=== PATIENT | female | born 1940 | race Caucasian/White ===

== ENCOUNTER 2016-05-26 19:32 | Inpatient (IN) | payer MEDICARE, BC ==
--- NOTE | ~2016-05-26 | MR122 ---
[facility] A Service of [facility] RADIOLOGY TEXT RESULTS PATIENT: KENAN GOTTI LOCATION: [place] [address] : 40 UNIT #: [id number] AGE: [address]: Morales Mays MD SEX: F ORDER DR: [id number] [facility] [address]. [place], [place] [address] [id number] I MR#: [id number] Acc #: [id number] NAME: KENAN GOTTI : 1940 SEX: F STUDY DATE/TIME: 05/28/2016 12:01 UNIT: [facility] ROOM: [facility] STUDY DESCRIPTION: MR MRA Head Wo Contrast Attending Physician: Morales Mays M.D. Ordering Physician: Donita Acevedo M.D. Primary Care Physician: Ric Holcomb M.D. MRI CENTER REPORT This report is preliminary unless electronic signature is present. EXAM MR angiogram, [place]. HISTORY Confusion and left arm weakness for about a month. Fell 05/26/2016; admitted through the Emergency Room for further evaluation. Possible CVA. COMMENT MR angiography performed of the [place] vasculature without contrast. No comparison at site of intracranial vasculature. There is no intracranial vascular cutoff. There is a small anterior communicating artery present. Neither posterior communicator is definitely seen. No focal central stenosis appearance. No intracranial aneurysm appreciated, allowing for the limitation of MR angiography in general for evaluation of small aneurysms. IMPRESSION Essentially normal MR angiography, [place] vasculature. Dictated by... Kathryn Doyle M.D. THIS IS AN ELECTRONICALLY VERIFIED REPORT Kathryn Doyle M.D. at 05/29/2016 1:47 PM CARMEN/edgard TD: 05/28/2016 19:00 JOB #: [id number] MRI CENTER REPORT [facility] A Service of [facility] RADIOLOGY TEXT RESULTS PATIENT: KENAN GOTTI LOCATION: [place] [id number] : 40 UNIT #: [id number] AGE: [address]: Morales Mays MD SEX: F ORDER DR: EDIE
--- NOTE | ~2016-05-26 | CO ---
Unit #: [id number] #: [id number] Patient: KENAN BYRD [id number] [address] [place], [place] [address] [id number] I MR#: [id number] NAME: KENAN BYRD ROOM: 547 Age: 75 Sex: F Admission Date: 05/26/2016 : 1940 Attending Physician: Morales Mays M.D. Primary Care Physician: Ric Holcomb M.D. Consultation Date: 05/27/2016 CONSULTATION REPORT REASON FOR CONSULTATION New-onset atrial fibrillation and chest pain and non ST elevated SD. HISTORY OF PRESENT ILLNESS This is a 75-year-old white female with reported dementia, who is well known to Dr. Mccabe, who has known coronary artery disease. Last January, she had angioplasty and stent placed to the first diagonal branch of the LAD. Earlier last year, had other stents placed to the proximal RCA and the mid RCA in the acute right ventricular branch. Her ejection fraction is 45% with known mitral regurgitation. She also has history of atrial and ventricular arrhythmias and PSVT. As mentioned, has known maybovcr-hc-nkxabg aortic regurgitation. The patient presented with symptoms of lightheadedness and complaining of substernal chest pain and some left arm weakness. According to information, the patient was brought into the emergency room accompanied by her daughter. She was at home earlier on day of admission and started noticing some pain in her entire left arm. She had reported to her family and to the staff yesterday that about a month ago she was having some problems holding things with her left hand. She started yesterday developing the left anterior chest wall pain along with left arm weakness but also could feel her heart racing. She reports she took three nitroglycerin and did not resolve any pain in her chest or up in the left arm. She was concerned it was heart, so she came to the emergency room for further evaluation. In the emergency room, the patient's EKG was found to show atrial fibrillation with rapid ventricular response with a heart rate in the 140s. There was some ST segment depression. She was given aspirin, Pepcid, and started on a Cardizem drip. Besides the chest pain and heart racing, she started developing some pain and weakness and aching in her left arm. She started complaining of pain in her jaws along with the aching in her left arm and left anterior chest wall pain. There is reports that she has had sudden hearing loss in her left ear that was worked by ENT in the past with negative findings. The patient converted back to normal sinus rhythm. The patient denies any acute dizziness that would be precipitating the presyncopal or syncopal episodes. She did not report any recent increased cough, fever, or chills. The patient's chest x-ray did not show anything acute. Her EKG, as mentioned, did show atrial fibrillation with some ST-T wave abnormalities in inferior leads and inferolateral leads. When she converted back to normal sinus rhythm, her EKG showed some T-wave inversion in all V leads, V1 through V6. Her initial troponin was less than 0.05 and then this morning her troponin came back 1.4. The patient was given a dose of Lovenox in addition to aspirin and started on a beta perez and statin. Cardiology has been consulted to assist with evaluation and management. The patient is well Unit #: [id number] #: [id number] Patient: KENAN BYRD known to Dr. Sánchez in our office and she had just seen Dr. Mccabe in the office on March 25, 2016. PAST MEDICAL HISTORY 1. Coronary artery disease. April 2015, status post PCI and drug-eluting stent to the proximal RCA, mid RCA, and acute right ventricular branch with LV EF of 45% with 3+ mitral regurgitation. LAD in January 2016 status post PCI and stent to first diagonal branch of the LAD, previous stent in the proximal RCA widely patent, mid RCA stent patent, and the right PDA stent patent. 2. History of paroxysmal supraventricular tachycardia. 3. Hypertension. 4. Hyperlipidemia. 5. Lifelong nonsmoker. 6. She has some mild dementia. 7. Reports some weight loss over the past year. PAST SURGICAL HISTORY 1. Status post PCI and drug-eluting stent, April 2015, to the proximal and mid RCA and acute right ventricular branch. 2. Status post PCI and drug-eluting stent, January 2016, to the first diagonal branch of the LAD. 3. Prior back surgery. 4. Left breast biopsy. 5. EGD and colonoscopy, reportedly normal. HOME MEDICATIONS 1. Plavix 75 mg one tablet p.o. daily. 2. Carafate 1 g p.o. four times daily. 3. Pepcid 40 mg p.o. daily. 4. Atorvastatin 80 mg p.o. at bedtime. 5. Metoprolol 75 mg p.o. daily. 6. Losartan 50 mg p.o. at bedtime. 7. Aspirin 81 mg p.o. daily. 8. Nitrostat 0.4 mg sublingual daily. ALLERGIES No known drug allergies. SOCIAL HISTORY The patient lives with her and she has dementia. Lifelong nonsmoker. No alcohol or illicit drug abuse. FAMILY HISTORY Sudden cardiac in the patient's daughter at the age of 52. The patient's mother also had coronary artery disease. REVIEW OF SYSTEMS See details in HPI. PHYSICAL EXAMINATION GENERAL: On exam, Ms. Byrd is a 75-year-old white female in no acute respiratory distress. VITAL SIGNS: Blood pressure 104/52, heart rate 77, respirations 18, temperature 98.7, O2 saturations 97% on room air. NECK: Trachea midline. No thyromegaly, lymphadenopathy. Normal carotid upstrokes. No jugular venous distention. HEART: S1, S2. Regular rate and rhythm. Systolic murmur over aortic Unit #: [id number] #: [id number] Patient: KENAN BYRD region, left sternal border. LUNGS: Diminished, otherwise clear. ABDOMEN: Soft, nontender. EXTREMITIES: Pedal pulses are palpable. No pedal edema. Slightly weaker hand grasp on the left. Moves all extremities well except for the left is a little slower. NEUROLOGIC: The patient is awake and alert, knows she is in the hospital, knows her family. Has some poor memory recall. DIAGNOSTIC STUDIES LABORATORY: Glucose is 93, BUN 23, creatinine 1.2, eGFR is 46.5, sodium 140, potassium 4.1, chloride 104, CO2 of 29, calcium 9, magnesium is 2. Total protein 8.3, albumin 4.4, bilirubin total 0.8, AST 43, ALT 36, alkaline phosphatase 72. WBC 9.5, hemoglobin 12.6, hematocrit 38.3. Today's hemoglobin is down to 10.9, hematocrit 31.9, platelets 227,000. Initial cardiac enzymes: CK-MB is less than 1, troponin is less than 0.05. Repeat cardiac enzymes: Troponin less than 0.03, then 1.4. IMAGING: Chest x-ray shows nothing acute. CARDIOVASCULAR: EKG on admission showed atrial fibrillation with rapid ventricular response. Ventricular rate is 142 beats per minute. Anterolateral depression, ischemia, left ventricular hypertrophy. Repeat EKG shows normal sinus rhythm, T-wave inversion in all V leads, flattening ST segment in V6. IMPRESSION 1. Non ST elevated myocardial infarction. 2. History of coronary artery disease, previous percutaneous coronary intervention and stents to the right coronary artery and the left anterior descending coronary artery. See details in history of present illness. 3. New-onset atrial fibrillation, converted back to normal sinus rhythm. 4. Left ventricular ejection fraction of 45% to 50% with jctnzxdr-sc-resgce mitral regurgitation, moderate tricuspid regurgitation, qdqparse-ot-hpofay aortic regurgitation, trace pulmonic valvular regurgitation with elevated right ventricular systolic pressure 42 mmHg. 5. Hypertension. 6. Weight loss, 25 pounds over the last one year. 7. Hyperlipidemia. 8. History of paroxysmal supraventricular tachycardia and atrial arrhythmias. 9. Nonsmoker. PLAN 1. Cardiology consulted to assist with evaluation and management. Currently, patient's heart rate is controlled, now on a beta perez. She did get some IV Lopressor. Currently, the Cardizem is turned off and her heart rate is remaining stable. The patient's troponin is elevated indicating a non ST elevated myocardial infarction. Dr. Mccabe reviewed patient's records and had a long discussion with the patient and family and plans to have a cardiac cath today to re-evaluate her coronary artery disease. Discussed with them risks and benefits including risk of bleeding, myocardial infarction, stroke, and even . The patient and family verbalized understanding and agrees to proceed. Unit #: [id number] #: [id number] Patient: KENAN BYRD 2. Neurology has been consulted to evaluate patient's left arm weakness and also some of her other symptoms, questionable transient ischemic attack or recent stroke. 3. Obtain fasting lipid profile and TSH and evaluate. 4. On exam, there are no signs or symptoms of acute congestive heart failure. 5. Will obtain TSH and T4 and evaluate. 6. Will also re-assess her valvular heart disease on the heart catheterization. She has a history of jhgncqpk-jj-ftxlmn mitral regurgitation and aortic regurgitation. 7. There have been reports of patient having some weight loss over the past few months. That will need to be evaluated at some time. Looking back on her weights, she weighed 136 May 11, 2015 and she weighs 110, it is like a 25 pound weight loss. 8. Continue patient on nitrate, aspirin, statin, beta perez, and Lovenox. The patient's creatinine is 1.2, holding her losartan at this time. Also, to avoid any hypotension. May need to restart later because of her cardiomyopathy. 9. Further recommendations pending per Dr. Mccabe. Doing a heart cath today. Thank you very much for allowing us to assist in her care. Dictated by... Nicole Ravi A.P.R.N. for Jordan Correa/poonam TD: 05/27/2016 12:12 JOB #: [id number] CC: Ric Holcomb M.D. CONSULTATION REPORT X Nicole Ravi APRN X CONSULTATION REPORT
--- NOTE | ~2016-05-26 | CR72 ---
[facility] A Service of [facility] RADIOLOGY TEXT RESULTS PATIENT: KENAN GOTTI LOCATION: [place] [address]- : 40 UNIT #: [id number] AGE: [address]: Morales Mays MD SEX: F ORDER DR: [id number] [facility] [address] [place], [place] [address] [id number] I MR#: [id number] Acc #: [id number] NAME: KENAN GOTTI : 1940 SEX: F STUDY DATE/TIME: 05/26/2016 23:23 UNIT: [facility] ROOM: [facility] STUDY DESCRIPTION: CR Chest Single View Portable Attending Physician: Elvia Velásquez M.D. Ordering Physician: Elvia Velásquez M.D. Primary Care Physician: Ric Holcomb M.D. MEDICAL IMAGING REPORT This report is preliminary unless electronic signature is present EXAM AP portable chest Date: 05/26/2016 HISTORY 75-year-old female with chest pain and weakness since 05/26/2016. COMPARISON AP portable chest 05/26/2016 19:13. FINDINGS Prominent nipple shadow is less conspicuous on this study than on prior. It is in a slightly different position on this examination than on the previous study. No acute airspace disease. Heart size normal. No pleural effusion or pneumothorax. IMPRESSION No acute chest findings. The previously described density in the right lung base is compatible with a nipple shadow. Dictated by... Stacy Aguilar M.D. THIS IS AN ELECTRONICALLY VERIFIED REPORT Stacy Aguilar M.D. at 05/27/2016 10:03 PM KASSI/ernie TD: 05/27/2016 06:48 JOB #: [id number] MEDICAL IMAGING REPORT COPY
--- NOTE | ~2016-05-26 | EKG ---
PATIENT: KENAN GOTTI UNIT #: [id number] Ventricular Rate: 65 BPM Atrial Rate: 65 BPM P-R Interval: 140 ms QRS Duration: 82 ms Q-T Interval: 412 ms QTC Calculation(Bezet): 428 ms P [place]: 42 degrees Calculated R [place]: 35 degrees Calculated T [place]: 43 degrees Diagnosis Line: Normal sinus rhythm Diagnosis Line: Normal ECG Diagnosis Line: When compared with ECG of 27-MAY-2016 08:50, Diagnosis Line: Nonspecific T wave abnormality, improved in Diagnosis Line: Inferior leads Diagnosis Line: Nonspecific T wave abnormality no longer evident Diagnosis Line: in Lateral leads Diagnosis Line: QT has shortened Diagnosis Line: Confirmed by PATRICIA TRAN MD ([id number]) on 05/29/2016 Diagnosis Line: 9:58:06 PM INTERPRETING MD: MARC SOLO
--- NOTE | ~2016-05-26 | CR72 ---
[facility] A Service of [facility] & [facility] RADIOLOGY TEXT RESULTS PATIENT: KENAN GOTTI LOCATION: [place] [address] : 40 UNIT #: [id number] AGE: [address]: Morales Mays MD SEX: F ORDER DR: [id number] [facility] [address] [place], [place] [address] [id number] I MR#: [id number] Acc #: [id number] NAME: KENAN GOTTI : 1940 SEX: F STUDY DATE/TIME: 05/26/2016 19:13 UNIT: [facility] ROOM: [facility] STUDY DESCRIPTION: CR Chest Single View Portable Attending Physician: Elvia Velásquez M.D. Ordering Physician: Ck Ibarra D.O. Primary Care Physician: Ric Holcomb M.D. MEDICAL IMAGING REPORT This report is preliminary unless electronic signature is present EXAM Portable chest, 05/26/2016 INDICATION Chest pain and weakness today. PROCEDURE Frontal view chest. COMPARISON 02/04/2016 FINDINGS Heart size is stable. No dense consolidation. There is a 16 mm nodular density in the lateral right lung base probably representing the nipple shadow. No pleural fluid. No pneumothorax. IMPRESSION 1. No clearly acute finding. 2. 16 mm apparent nodule in the lateral right lung base favored to represent the nipple shadow but cannot exclude a basilar nodule. A repeat with nipple marker in place, would be helpful. Dictated by... Chay Miller M.D. THIS IS AN ELECTRONICALLY VERIFIED REPORT Chay Miller M.D. at 05/28/2016 7:00 AM EED/myranda TD: 05/27/2016 03:09 [facility] A Service of [facility] RADIOLOGY TEXT RESULTS PATIENT: KENAN GOTTI LOCATION: [place] [address] : 40 UNIT #: [id number] AGE: [address]: Morales Mays MD SEX: F ORDER DR: JOB #: [id number] MEDICAL IMAGING REPORT COPY
--- NOTE | ~2016-05-26 | MR18 ---
[facility] A Service of [facility] & [facility] RADIOLOGY TEXT RESULTS PATIENT: KENAN GOTTI LOCATION: [facility] [id number] : 40 UNIT #: [id number] AGE: [address]: Morales Mays MD SEX: F ORDER DR: [id number] [facility] [address] [place], [place] [address] [id number] I MR#: [id number] Acc #: [id number] NAME: KENAN GOTTI. : 1940 SEX: F STUDY DATE/TIME: 05/28/2016 11:11 UNIT: B ROOM: [facility] STUDY DESCRIPTION: MR Brain Wo Contrast Attending Physician: Morales Mays M.D. Ordering Physician: Donita Acevedo M.D. Primary Care Physician: Ric Holcomb M.D. MRI CENTER REPORT This report is preliminary unless electronic signature is present. EXAM MRI brain without contrast. HISTORY CVA concern. Confusion and left arm weakness for 1 month. Fell 05/26/2016, with increasing left arm pain. Evaluated in the Emergency Room, 05/26/2016. No history of cancer. COMMENT MRI of the brain was performed without contrast, using routine 1.5-T imaging technique. Comparison study 02/02/2016. No evidence for recent ischemic insult on the diffusion series. Mild generalized atrophy. No Chiari I malformation. Mild generalized atrophy. No particular atrophy pattern. Moderate white matter signal abnormality, most confluent in the deep to periventricular white matter again seen with focal malacia, including cortical involvement at the right lateral frontal lobe, all chronic. There is what is probably a densely calcified meningioma overlying the left frontal lobe, about 1 cm in dimension and incidental. It is unchanged. There is no extraaxial fluid collection. The major intracranial flow voids are maintained. Minor mucosal disease in the ethmoid air cells. No sinus air-fluid level. The mastoid air cells are clear. IMPRESSION 1. No acute intracranial abnormality. 2. Redemonstration of probable sequelae of both small vessel disease and a prior thromboembolic insult to the right frontal lobe. These findings are unchanged from comparison to 02/02/2016. There is mild generalized atrophy, but no particular pattern of atrophy. No STS. [facility] A Service of [facility] RADIOLOGY TEXT RESULTS PATIENT: KENAN GOTTI LOCATION: [facility] [id number] : 40 UNIT #: [id number] AGE: [address]: Morales Mays MD SEX: F ORDER DR: extraaxial fluid collection or hydrocephalus. 3. Redemonstration of likely small incidental densely calcified meningioma overlying the left frontal lobe. Dictated by... Kathryn Doyle M.D. THIS IS AN ELECTRONICALLY VERIFIED REPORT Kathryn Doyle M.D. at 05/29/2016 1:46 PM Mynor TD: 05/28/2016 18:08 JOB #: [id number] MRI CENTER REPORT COPY
--- NOTE | ~2016-05-26 | CR126 ---
[facility] A Service of [facility] RADIOLOGY TEXT RESULTS PATIENT: KENAN GOTTI LOCATION: [place] [address] : 40 UNIT #: [id number] AGE: [address]: Morales Mays MD SEX: F ORDER DR: [id number] [facility] [address] [place], [place] [address] [id number] MR#: [id number] Acc #: [id number] NAME: KENAN GOTTI : 1940 SEX: F STUDY DATE/TIME: 05/30/2016 11:52 UNIT: C5 ROOM: [facility] STUDY DESCRIPTION: CR Foot Complete Min 3 View Lt Attending Physician: Morales Mays M.D. Ordering Physician: Morales Mays M.D. Primary Care Physician: Ric Holcomb M.D. MEDICAL IMAGING REPORT This report is preliminary unless electronic signature is present EXAM Left foot, 3 views. DATE OF EXAM 05/30/2016, 1152 hours. CLINICAL HISTORY 75-year-old woman complaining of lateral foot and ankle pain and swelling for 4 days. No known injury. COMPARISON None. FINDINGS AP, lateral and oblique views demonstrate an abnormal appearance to the 4th metatarsal, where there is definite periosteal thickening and likely a subacute or healing proximal fracture. There is some spurring at the proximal 5th metatarsal, which appears chronic. No acute fracture lucency is seen. IMPRESSION The 4th metatarsal is abnormal with diffuse periosteal thickening along the lateral cortex. There is some sclerotic change obliquely oriented through the proximal 4th metatarsal which is likely the site of a healed or healing fracture. There is no definite acute fracture seen. This finding is older than 4 days, and could be chronic. Dictated by... Amarilys Hartman M.D. [facility] A Service [facility] RADIOLOGY TEXT RESULTS PATIENT: KENAN GOTTI LOCATION: [place] [address] : 40 UNIT #: [id number] AGE: [address]: Morales Mays MD SEX: F ORDER DR: THIS IS AN ELECTRONICALLY VERIFIED REPORT Amarilys Hartman M.D. at 05/31/2016 9:18 AM ZEB/whitney TD: 05/30/2016 16:47 JOB #: [id number] MEDICAL IMAGING REPORT COPY
--- NOTE | ~2016-05-26 | CO ---
Unit #: [id number] #: [id number] Patient: KENAN GOTTI 116[address] [place] [address] [place], [place] [address] [id number] MR#: [id number] NAME: KENAN GOTTI ROOM: 547 Age: 75 Sex: F Admission Date: 05/26/2016 : 1940 Attending Physician: Morales Mays M.D. Primary Care Physician: Ric Holcomb M.D. Consultation Date: 05/27/2016 CONSULTATION REPORT REASON FOR CONSULTATION 1. Left arm numbness. 2. Left hand weakness. 3. Decreased hearing on the left side, this happened about 4 weeks ago. PATIENT IDENTIFICATION This is a 75-year-old right-handed white female, who is evaluated in room 547 at [facility]. SOURCE OF INFORMATION The patient and very detailed evaluation done by Dr. Velásquez. PRIMARY CARE PHYSICIAN Ric Holcomb M.D. HISTORY OF PRESENT ILLNESS This is a 75-year-old right-handed white female, who actually was admitted for some chest pain and lightheadedness. While she was being evaluated, she told Dr. Velásquez that she had some left-sided symptoms and the symptoms were that she has numbness on the outer border or the dorsal aspect of the left arm almost in the middle of that and also she had an episode of some weakness where she could not open a jar about 3 to 4 weeks ago and then she had decreased hearing on the left side, though she wears a hearing aid. She is on aspirin and Plavix. She is now here for some chest pain. She is being evaluated. There is no imaging study. She is not very weak and she really could not explain to me if there were any other symptoms or why did she not come to the emergency room. No falls or injuries. No headaches. No seizures. No radicular signs or symptoms. She is blaming these things on medication, but she could not tell me that there was a change in medication at that time. Please refer to the detailed evaluation done by Dr. Velásquez regarding her other symptoms. No bowel or bladder symptoms. No passing out. PAST MEDICAL HISTORY 1. Coronary artery disease. The patient had cardiac cath done in the past. 2. Hypertension. 3. Hyperlipidemia. 4. History of paroxysmal supraventricular tachycardia. 5. History of atrial fibrillation. 6. Prior back surgery. 7. Left breast biopsy. 8. EGD. 9. Colonoscopy. Unit #: [id number] #: [id number] Patient: KENAN GOTTI ALLERGIES None. HOME MEDICATIONS Atorvastatin 80 mg, metoprolol tartrate 75 mg, losartan 50 mg, Plavix 75 mg, aspirin 81 mg, famotidine 40 mg, Carafate questionably not taking it, nitroglycerin 0.4 mg. FAMILY HISTORY Sudden cardiac in the patient's daughter at age 52. Mother had coronary artery disease. SOCIAL HISTORY The patient is . She lives with her , who has dementia. I believe her daughter was here. The patient never a smoker. She does not really drink. No drug use. REVIEW OF SYSTEMS Mostly as discussed in history of present illness. CONSTITUTIONAL: The patient denies any sleep issues, fever, chills, rigor, or sweats. HEENT: No headaches. No double vision, earache, runny nose, or sore throat. CARDIOVASCULAR: No chest pain, clubbing, cyanosis, orthopnea, or palpitation. She has no active chest pain right now. PULMONARY: No shortness of air, cough, or expectoration. GI: No nausea, vomiting, diarrhea, or constipation. : No genitourinary symptoms. EXTREMITIES: Problems as discussed. BACK: No acute back problems. PSYCHIATRIC: No psychiatric issue. NEUROLOGIC: No other neurologic issue. No other hematologic, dermatologic, or endocrine problem known to me. PHYSICAL EXAMINATION VITAL SIGNS: Temperature 98.7, pulse 77, respirations are 18, blood pressure 104/52, O2 saturations 96% to 98%. Weight of 111 pounds, BMI was 20. NEUROLOGIC: The patient is awake. She is alert. She is oriented. She can name. She can follow commands. No right/left confusion. No finger agnosia. Cranial nerve examination demonstrates full kaye of vision to confrontation. Eye movements are conjugate. I did not see any ptosis. I did not see any nystagmus. Extraocular movements are intact. Hearing is intact on the right side, almost absent on the left side. Tongue was midline. I could not visualize oropharynx or uvula. Head turning was spontaneous. Motor examination demonstrated normal bulk, tone. Strength was essentially 5/5. Sensory examination is questionable. C6 area decreased with very nonspecific. No extinction or other abnormalities seen. I could not get any reflexes. Toes are equivocal. Coordination was normal. Unit #: [id number] #: [id number] Patient: KENAN GOTTI DIAGNOSTIC STUDIES IMAGING STUDIES: None available. LABORATORY RESULTS: Troponin was 1.40, so she is going for cath today. Hemoglobin A1c was 5.5. LDL is 67. White count was 9.5, H and H of 10.9 and 31.9, platelet count 227. IMPRESSION Very nonspecific symptoms which had about 4 weeks back. I will first get an MRI on her, which is scheduled and based on that, decide future course of action. She is already on aspirin and Plavix. This is nothing acute. She has all the other risk factors and age if she has had chronic strokes, so if I find something acute or subacute, definitely track it, because I am not sure about the duration, obviously not a tPA or interventional candidate, already taking antiplatelets and Lipitor with good profile otherwise, so continue the present management and I will follow up. Call me for any other questions, issues, or concerns and further treatment will be based on any findings that we have and I will keep you informed. Dictated by... Jordan Chopra/tamia TD: 05/27/2016 23:06 JOB #: [id number] CONSULTATION REPORT X Donita Acevedo MD CONSULTATION REPORT
--- NOTE | ~2016-05-26 | HP ---
Unit #: [id number] #: [id number] Patient: KENAN BYRD [id number] [address] [place], [place] [address] [id number] I MR#: [id number] NAME: KENAN BYRD. ROOM: 547 Age: 75 Sex: F Admission Date: 05/26/2016 : 1940 Attending Physician: Elvia Velásquez M.D. Primary Care Physician: Ric Holcomb M.D. HISTORY AND PHYSICAL CHIEF COMPLAINT Lightheadedness, left arm weakness, chest pain. HISTORY OF PRESENT ILLNESS Ms. Byrd is a 75-year-old female with a history of coronary artery disease who presents to the ER for above. History is taken from the patient and her daughter. I will note that patient is tangential and just answers most questions with "I blame is on the medicine." She states that she was at home earlier today and she notice some pain of her entire left arm. She tells me that approximately one month ago she noticed that she was having trouble holding things with her left hand. She denies dropping any items. She knows she couldn't open jars anymore. With this, she has had some left shoulder and arm pain that she describes as achy. This pain became worse today and she was concerned it might be her heart. She states he did feel her heart racing at home but doesn't really endorse any substernal chest pain to me. She took three nitroglycerin, didn't have resolution of her left arm pain, became concerned and, thus, presented to the emergency department. Upon presentation, the patient was found to be tachycardic with a pulse rate 145. Blood pressure was stable. She was also tachypneic with a respiratory rate of approximately 30. She denies any cough, she denies any fever. She denies any jaw pain at home. However, she did have some nausea at home and began vomiting at home. Emesis has been nonbloody. Initial EKG in the emergency department was in sinus rhythm but the ST segment depression in V3 through V6. This is changed from an EKG in January 2016. However, patient subsequently went into a coughing fit and subsequently developed A-fib with RVR with a heart rate of 140, still with the same ST segment depression. She was given aspirin, Pepcid and started on a Cardizem drip in the emergency department. She states now she is still not having any pain in her jaws. Her chest pain is nil but she is still having aching of her left arm. She has multiple complaints about sudden hearing loss in her left ear that was worked up by an ENT in the past with negative findings. She states she has chronic feeling of "a bra always stuck on her lower chest" that has had a negative workup including reportedly a negative EGD and negative testing for H. pylori. She is being admitted for symptoms and complaints as noted above. PAST MEDICAL HISTORY 1. Coronary artery disease. The patient underwent heart cath in January 2016 with normal left main. LAD was normal with the first diagonal branch of 75% proximal stenosis. Circumflex is nondominant with mild plaquing. Right coronary artery proximal third was normal. The mid segment had a patent stent. Right ventricular branch had another patent stent. PDA and PLV branch were normal. There is a Unit #: [id number] #: [id number] Patient: KENAN BYRD stent in the mid right coronary artery that is also patent. Ejection fraction was 45% at that time. Mild mitral regurgitation was noted. She underwent angioplasty to the first diagonal branch of the LAD. 2. Hypertension. 3. Hyperlipidemia. 4. History of paroxysmal supraventricular tachycardia. 5. History of A-fib. PAST SURGICAL HISTORY Includes: 1. Heart cath with stenting in the past. 2. Prior back surgery. 3. Left breast biopsy. 4. EGD which was reportedly normal. 5. Colonoscopy which was negative. ALLERGIES No known drug allergies. MEDICATIONS Home medications currently include: 1. Atorvastatin 80 mg at bedtime. 2. Metoprolol tartrate 75 mg daily. 3. Losartan 50 mg daily. 4. Plavix 75 mg daily. 5. Aspirin 81 mg daily. 6. Famotidine 40 mg daily. 7. Carafate 1 g four times daily though I am told patient is no longer taking this. 8. Nitroglycerin 0.4 mg sublingual q.5 minutes p.r.n. for chest pain. FAMILY HISTORY Significant for sudden cardiac in patient's daughter at the age of 52. The patient's mother also had coronary artery disease. SOCIAL HISTORY The patient has never smoked. She does not drink alcohol. She lives with her who has dementia and is accompanied this evening by her and daughter. REVIEW OF SYSTEMS Patient denies any sore throat or vision changes. She does endorse a 20 pound weight loss over the last 13 months. She has poor appetite. She has bilateral hearing loss but worsening sudden hearing loss in the left ear over the past several months. She has chest pain as noted above. She does endorse tachycardia and palpitations earlier today. She endorses nausea and vomiting. She endorses constipation. She does have urge incontinence and states that she has to push sometimes to get all of her urine out. She denies any hematuria. She did have a fall one month ago at home after tripping over a rug but didn't sustain any injuries. She has chronic low back pain. She does have this new left hand weakness as noted above. She intermittently has some left arm numbness of the hand that comes and goes. Otherwise, ten point review of systems was reviewed and is negative with the exception of HPI. PHYSICAL EXAMINATION VITAL SIGNS: Temperature 97.6, blood pressure currently 120/56, pulse rate 127, respiratory rate 22. Oxygen saturation is normal on room air. Unit #: [id number] #: [id number] Patient: KENAN BYRD GENERAL: The patient is awake, she is alert. She is oriented x3 but gives kind of vague history and is somewhat tangential. HEENT: Pupils equally round, reactive to light bilaterally. Anicteric sclerae. No conjunctival pallor. Oropharynx with mildly dry mucous membranes. No erythema or exudate. NECK: Supple. No lymphadenopathy, no thyromegaly, no JVD. HEART: Irregularly irregular and tachycardia without murmur, rub or gallop. LUNGS: Clear to auscultation bilaterally without wheezes, rhonchi or crackles. ABDOMEN: Soft, nontender, nondistended. Positive bowel sounds. EXTREMITIES: No cyanosis, clubbing, or edema. Pedal pulses 2/4. SKIN: Warm, moist without rash. She is noted to be pale. Skin is in very good condition for her age. NEUROLOGICAL: Cranial nerves II-XII are intact bilaterally. Sensation is intact in upper and lower extremities bilaterally. 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 It is 3+ to 4/5 on the left. Strength with dorsiflexion and plantar flexion is 5 out of 5 bilaterally in the lower extremities. Deep tendon reflexes are 2/4 in upper and lower extremities bilaterally but assessment on the left was difficult given patient had blood pressure cuff. Gait, however, was not assessed. PSYCHIATRIC: Somewhat flat affect and tangential. Doesn't always give direct answers. No suicidal or homicidal ideation. DIAGNOSTIC STUDIES LABORATORY: Lab work done in the emergency department reveals a white blood cell count of 12.3, hemoglobin 12.6, platelet count of 295,000. Sodium 137, potassium 4.2, chloride 98, bicarb 23, BUN 20, creatinine 1.2, glucose of 193. Troponins have been negative x2. CARDIOVASCULAR: EKG initially done in the emergency department reveals normal sinus rhythm with ST segment depression in V3 through V6. Followup EKG done approximately an hour later reveals A-fib with RVR, still with the same ST segment depression. ASSESSMENT 1. Chest pain, question unstable angina. 2. Atrial fibrillation with rapid ventricular response. 3. Left and weakness of approximately four weeks duration, question underlying stroke. 4. Acute kidney injury: Baseline creatinine appears to be 0.9 per record review. 5. Hypertension. 6. Nausea, vomiting, question cardiac related versus GI related. 7. Coronary artery disease. 8. Leukocytosis, question reactive versus infection. 9. Anxiety. 10. Hyperglycemia. 11. Mild systolic congestive heart failure. PLAN 1. Will admit patient to inpatient status on telemetry. 2. Serial troponins have been negative. I will recheck a troponin again at approximately [address] Mccabe in regards to patient's A-fib with RVR and chest pain. 3. Will continue patient on Cardizem drip for her A-fib. I am going to give her a single dose of IV metoprolol given heart rate is still somewhat elevated in the 130s. Will also continue on her oral Unit #: [id number] #: [id number] Patient: KENAN BYRD metoprolol. I am also going to place her on therapeutic Lovenox given her A-fib. This will also cover for any unstable angina. 4. Will hold Plavix in regards to unstable angina given therapeutic Lovenox. 5. Will obtain MRI of the brain without contrast given patient's left arm weakness. This is approximately one month in duration. It doesn't sound like an acute stroke but she is definitely at risk given her A-fib. Will also have Dr. Acevedo evaluate the patient. 6. Will hold losartan in regards to patient's acute kidney injury. I am going to give her a low dose of IV fluids just for one liter given her mildly low EF in the past. 7. Will followup renal function in the morning. 8. Will provide Zofran p.r.n. for nausea and vomiting. Also, place her on Protonix. She may require EGD but, again, she reportedly had a rather recent negative EKG. 9. Will continue medications for hypertension with the addition losartan. Will provide hydralazine on a p.r.n. basis. 10. Will check hemoglobin A1c in regards to patient's hyperglycemia. 11. Will follow up based upon lab work. Dictated by Elvia Velásquez M.D. JOHN PAUL/annie TD: 05/27/2016 05:20 JOB #: [id number] HISTORY AND PHYSICAL X Elvia Velásquez MD HISTORY AND PHYSICAL
--- NOTE | ~2016-05-26 | EKG ---
PATIENT: KENAN GOTTI UNIT #: [id number] Ventricular Rate: 80 BPM Atrial Rate: 80 BPM P-R Interval: 140 ms QRS Duration: 86 ms Q-T Interval: 426 ms QTC Calculation(Bezet): 491 ms P [place]: 65 degrees Calculated R [place]: 57 degrees Calculated T [place]: 59 degrees Diagnosis Line: Normal sinus rhythm Diagnosis Line: Nonspecific ST and T wave abnormality Diagnosis Line: Prolonged QT Diagnosis Line: Abnormal ECG Diagnosis Line: When compared with ECG of 27-MAY-2016 01:22, Diagnosis Line: (unconfirmed) Diagnosis Line: Nonspecific T wave abnormality now evident in Diagnosis Line: Inferior leads Diagnosis Line: T wave inversion no longer evident in Anterior Diagnosis Line: leads Diagnosis Line: Confirmed by PATRICIA TRAN MD ([id number]) on 05/28/2016 Diagnosis Line: 7:29:28 PM INTERPRETING MD: MARC SOLO
--- NOTE | ~2016-05-26 | EKG ---
PATIENT: KENAN GOTTI UNIT #: [id number] Ventricular Rate: 90 BPM Atrial Rate: 90 BPM P-R Interval: 100 ms QRS Duration: 102 ms Q-T Interval: 400 ms QTC Calculation(Bezet): 489 ms P [place]: 90 degrees Calculated R [place]: 66 degrees Calculated T [place]: 96 degrees Diagnosis Line: Sinus rhythm with short UT Diagnosis Line: ST and T wave abnormality, consider lateral ischemia Diagnosis Line: Abnormal ECG Diagnosis Line: When compared with ECG of 06-FEB-2016 05:49, Diagnosis Line: ST now depressed in Inferior leads Diagnosis Line: ST now depressed in Lateral leads Diagnosis Line: T wave inversion now evident in Inferior leads Diagnosis Line: T wave inversion now evident in Lateral leads Diagnosis Line: QT has lengthened Diagnosis Line: Confirmed by PATRICIA TRAN MD ([id number]) on 05/28/2016 Diagnosis Line: 7:24:43 PM INTERPRETING MD: MARC SOLO
--- NOTE | ~2016-05-26 | EKG ---
PATIENT: KENAN GOTTI UNIT #: [id number] Ventricular Rate: 74 BPM Atrial Rate: 74 BPM P-R Interval: 158 ms QRS Duration: 82 ms Q-T Interval: 422 ms QTC Calculation(Bezet): 468 ms P [place]: 76 degrees Calculated R [place]: 48 degrees Calculated T [place]: 88 degrees Diagnosis Line: Normal sinus rhythm Diagnosis Line: T wave abnormality, consider lateral ischemia Diagnosis Line: Abnormal ECG Diagnosis Line: When compared with ECG of 26-MAY-2016 19:44, Diagnosis Line: (unconfirmed) Diagnosis Line: Sinus rhythm has replaced Atrial fibrillation Diagnosis Line: Vent. rate has decreased BY 66 BPM Diagnosis Line: ST no longer depressed in Inferior leads Diagnosis Line: ST no longer depressed in Lateral leads Diagnosis Line: T wave inversion no longer evident in Inferior Diagnosis Line: leads Diagnosis Line: T wave inversion now evident in Anterolateral Diagnosis Line: leads Diagnosis Line: Confirmed by PATRICIA TRAN MD ([id number]) on 05/28/2016 Diagnosis Line: 7:26:25 PM INTERPRETING MD: MARC SOLO
--- NOTE | ~2016-05-26 | EKG ---
PATIENT: KENAN GOTTI UNIT #: [id number] Ventricular Rate: 67 BPM Atrial Rate: 67 BPM P-R Interval: 140 ms QRS Duration: 86 ms Q-T Interval: 416 ms QTC Calculation(Bezet): 439 ms P [employer]: 56 degrees Calculated R [employer]: 63 degrees Calculated T [employer]: 52 degrees Diagnosis Line: Normal sinus rhythm Diagnosis Line: Normal ECG Diagnosis Line: When compared with ECG of 29-MAY-2016 10:16, Diagnosis Line: No significant change was found Diagnosis Line: Confirmed by PATRICIA TRAN MD ([id number]) on 06/01/2016 Diagnosis Line: 7:34:44 AM INTERPRETING MD: MARC SOLO
--- NOTE | ~2016-05-26 | CR20 ---
[facility] A Service of [facility] & [facility] RADIOLOGY TEXT RESULTS PATIENT: KENAN GOTTI LOCATION: [place] [address]- : 40 UNIT #: [id number] AGE: [address]: Morales Mays MD SEX: F ORDER DR: [id number] [facility] [address] [place], [place] [address] [id number] I MR#: [id number] Acc #: [id number] NAME: KENAN GOTTI. : 1940 SEX: F STUDY DATE/TIME: 05/30/2016 1150 UNIT: [facility] ROOM: [facility] STUDY DESCRIPTION: CR Ankle Min 3 Views Lt Attending Physician: Morales Mays M.D. Ordering Physician: Morales Mays M.D. Primary Care Physician: Ric Holcomb M.D. MEDICAL IMAGING REPORT This report is preliminary unless electronic signature is present EXAM Left ankle 3 views 05/30/2016 at 1150 hours HISTORY 75-year-old woman with 4 day history of pain on the lateral ankle and foot. Pain with weightbearing. No known injury. COMPARISON STUDIES Left foot 05/30/2016 FINDINGS AP, lateral and oblique views demonstrate no fracture, dislocation or significant degenerative change. IMPRESSION Negative left ankle. Dictated by... Amarilys Hartman M.D. THIS IS AN ELECTRONICALLY VERIFIED REPORT Amarilys Hartman M.D. at 05/31/2016 9:18 AM Christian TD: 05/30/2016 16:33 JOB #: [id number] MEDICAL IMAGING REPORT COPY
--- NOTE | ~2016-05-26 | MR134 ---
[facility] A Service of [facility] & [facility] RADIOLOGY TEXT RESULTS PATIENT: KENAN GOTTI LOCATION: [facility] 54- : [birth year] UNIT #: [id number] AGE: [address]: Morales Mays MD SEX: F ORDER DR: [id number] [facility] [address] [place], [place] [address] [id number] I MR#: [id number] Acc #: [id number] NAME: KENAN GOTTI. : 1940 SEX: F STUDY DATE/TIME: 05/28/2016 12:10 UNIT: [facility] ROOM: [facility] STUDY DESCRIPTION: MR MRA Neck Wo Contrast Attending Physician: Morales Mays M.D. Ordering Physician: Donita Acevedo M.D. Primary Care Physician: Ric Holcomb M.D. MRI CENTER REPORT This report is preliminary unless electronic signature is present. EXAM MR angiogram neck without contrast HISTORY Confusion, left arm weakness for a month, patient fell on 05/26/2016 and admitted through the emergency room. COMMENT MR angiography performed neck vessels without contrast. No prior. By NASCET criteria, no hemodynamically-significant narrowing is appreciated at either carotid bifurcation. Both vertebral arteries are patent in their visualized portions. Origin is not well assessed because of motion on a noncontrast MR angiogram. Vertebral system is fairly balanced. IMPRESSION Essentially normal MR angiography neck vasculature. No hemodynamically-significant narrowing suspected at either carotid bifurcation by NASCET criteria. STAT * RESULT Dictated by... Kathryn Doyle M.D. THIS IS AN ELECTRONICALLY VERIFIED REPORT Kathryn Doyle M.D. at 05/28/2016 4:58 PM CARMEN/raoul TD: 05/28/2016 14:15 [facility] A Service of [facility] & [facility] RADIOLOGY TEXT RESULTS PATIENT: KENAN GOTTI LOCATION: [facility] 547-01 : 40 UNIT #: [id number] AGE: [address]: Morales Mays MD SEX: F ORDER DR: MAKSIM #: [id number] MRI CENTER REPORT COPY
--- NOTE | ~2016-05-26 | EKG ---
PATIENT: KENAN GOTTI UNIT #: [id number] Ventricular Rate: 142 BPM Atrial Rate: 144 BPM QRS Duration: 76 ms Q-T Interval: 308 ms QTC Calculation(Bezet): 473 ms Calculated R [place]: 62 degrees Calculated T [place]: 105 degrees Diagnosis Line: Atrial fibrillation with rapid ventricular Diagnosis Line: response Diagnosis Line: ST and T wave abnormality, consider anterolateral Diagnosis Line: ischemia Diagnosis Line: Abnormal ECG Diagnosis Line: When compared with ECG of 26-MAY-2016 18:24, Diagnosis Line: (unconfirmed) Diagnosis Line: Significant changes have occurred Diagnosis Line: Confirmed by PATRICIA TRAN MD ([id number]) on 05/28/2016 Diagnosis Line: 7:24:55 PM INTERPRETING MD: MARC SOLO
--- NOTE | ~2016-05-26 | DS ---
Unit #: [id number] #: [id number] Patient: KENAN GOTTI [id number] [address] [address] [id number] I MR#: [id number] NAME: KENAN GOTTI ROOM: 547 Age: 75 Sex: F Admission Date: 05/26/2016 : 1940 Discharge Date: 05/30/2016 Attending Physician: Morales Mays M.D. Primary Care Physician: Ric Holcomb M.D. DISCHARGE SUMMARY JOB NOTE: ADDENDUM ADDENDUM DISCHARGE MEDICATIONS Xarelto 20 mg p.o. daily, Lopressor 75 mg p.o. daily, Lipitor 80 mg p.o. q.h.s., and Tylenol 650 mg p.o. q.6 p.r.n. Dictated by... Jordan Powell/tamia TD: 05/31/2016 01:25 JOB #: [id number] DISCHARGE SUMMARY X Morales Mays MD DISCHARGE SUMMARY
--- NOTE | ~2016-05-26 | DS ---
Unit #: [id number] #: [id number] Patient: KENAN GOTTI [id number] [address] [place], [place] [address] [id number] I MR#: [id number] NAME: KENAN GOTTI. ROOM: 547 Age: 75 Sex: F Admission Date: 05/26/2016 : 1940 Discharge Date: 05/30/2016 Attending Physician: Morales Mays M.D. Primary Care Physician: Ric Holcomb M.D. DISCHARGE SUMMARY REASON FOR ADMISSION Lightheadedness, left arm weakness, chest pain. HISTORY OF PRESENT ILLNESS/HOSPITAL COURSE The patient is a very pleasant 75-year-old female, who followed by Dr. Ric Holcomb at [facility] with an underlying history of coronary artery disease with prior stent placement x5, who presents with chest pain, left arm weakness, as well as difficulty with ambulation. In regard to her underlying history of coronary artery disease as well as prior history of stent placement, consultation was placed to Dr. Mccabe of Cardiology Services. The patient underwent a cardiac catheterization through hospital course, which did reveal coronary artery disease which was noted, but no stents were placed. Medical management was recommended. No stent was placed; however, balloon angioplasty was done. The patient tolerated the cardiac catheterization procedure well without difficulty. Left ventriculogram was not done secondary to decreased GFR. From a cardiac standpoint, she was maintained on appropriate medications and currently she is chest pain-free and appears stable for discharge. She also tells me that over the past 6 months, she has lost anywhere from 20 to 30 pounds and an element of depression certainly may be playing a role. She tells me her last colonoscopy as well as endoscopic evaluation has been several years. I did recommend to her that she follow up with her PCP as an outpatient for evaluation, outpatient referral, and consideration for colonoscopy and/or further imaging, she expressed agreement. I also discharge her home on a prescription for Cymbalta 30 mg on a daily basis. In the past, apparently she has had an adverse reaction to BuSpar, but I do not believe she tried any other SSRI or SNRI medications. Today, she is complaining of some left lower extremity discomfort around her ankle area, therefore, we will order an x-ray of her foot and Ankle. If it is negative, she will be stable for discharge. In consideration of her weakness as well as left-sided and upper extremity weakness, we did place consultation to Dr. Acevedo of Neurology Services. The patient ultimately underwent an MRI of brain without contrast as well as MRI of head without contrast on 05/28/2016, both of them were unremarkable. Unit #: [id number] #: [id number] Patient: KENAN GOTTI She was cleared from Neurology standpoint. Today, at the time of discharge, her hemoglobin is 9.4 likely representing her baseline, creatinine 0.8, GFR is greater than 60, and she is currently stable for discharge home. Her hemoglobin A1c on this hospital admission was 5.5. Please note, the patient did have decreased B12 level of 205. While she was here, she received a vitamin B12 1000 units IM daily. At the time of discharge, this may be set up on a weekly or biweekly basis by her PCP. FINAL DISCHARGE DIAGNOSES 1. Chest pain, status post cardiac catheterization with resultant balloon angioplasty. 2. Coronary artery disease with prior history of stent placement in 01/2016. 3. Hypertension. 4. Hyperlipidemia. 5. Prior history of atrial fibrillation. 6. Proximal supraventricular tachycardia. 7. Failure to thrive. 8. Weight loss. 9. Underlying anxiety/depression. 10. B12 deficiency. 11. Left upper extremity weakness, now resolved. 12. Prior history of gastroesophageal reflux disease. FINAL DISCHARGE MEDICATIONS Carafate 1 g p.o. q.6 with meals, aspirin 81 mg p.o. daily, Plavix 75 mg p.o. daily, Protonix 40 mg p.o. daily, vitamin B12 1000 mcg IM q.week or biweekly at the discretion of primary care physician, Cymbalta 30 mg p.o. daily, Cozaar 12.5 mg p.o. q.h.s. DISCHARGE CONDITION Stable. DISCHARGE DISPOSITION Home with home health. Dictated by... Morales Mays M.D. GUERRERO/tamia TD: 05/31/2016 01:21 JOB #: [id number] Unit #: [id number] #: [id number] Patient: KENAN GOTTI DISCHARGE SUMMARY X Morales Mays MD X DISCHARGE SUMMARY
--- NOTE | ~2016-05-26 | EKG ---
PATIENT: KENAN GOTTI UNIT #: [id number] Ventricular Rate: 140 BPM Atrial Rate: 141 BPM QRS Duration: 92 ms Q-T Interval: 316 ms QTC Calculation(Bezet): 482 ms Calculated R [place]: 65 degrees Calculated T [place]: 94 degrees Diagnosis Line: Atrial fibrillation with rapid ventricular Diagnosis Line: response Diagnosis Line: Marked ST abnormality, possible inferior Diagnosis Line: subendocardial injury Diagnosis Line: Abnormal ECG Diagnosis Line: When compared with ECG of 26-MAY-2016 19:02, Diagnosis Line: (unconfirmed) Diagnosis Line: ST now depressed in Inferior leads Diagnosis Line: ST less depressed in Anterior leads Diagnosis Line: T wave inversion now evident in Inferior leads Diagnosis Line: T wave inversion no longer evident in Diagnosis Line: Anterolateral leads Diagnosis Line: Confirmed by PATRICIA TRAN MD ([id number]) on 05/28/2016 Diagnosis Line: 7:25:11 PM INTERPRETING MD: MARC SOLO
[2016-05-26 19:16] LABS: BASOPHIL# 0.1 X10e3 (0-0.3); BASOPHIL% 0.7 % (0-2.5); EOSINOPHIL% 0.4 % (0.0-7.0); HEMATOCRIT 38.3 % (35.0-45.0); HEMOGLOBIN 12.6 gm/dL (12.0-16.0); LYMPHOCYTE# 4.8 X10e3 (1.0-3.5); LYMPHOCYTE% 38.8 % (17.0-45.0); MEAN CELL VOLUME 94.5 FL (83-96); MEAN CORPUSCULAR HEMOGLOBIN 31.1 PG (28-34); MEAN CORPUSCULAR HGB CONC 32.9 g/dL (30-36); MEAN PLATELET VOLUME 9.3 FL (6.5-11.5); MONOCYTE# 0.9 X10e3 (0-1.0); NEUTROPHIL# 6.5 X10e3 (1.5-7.1); NEUTROPHIL% 53.1 % (40-75); PLATELET COUNT 295 X10e3 (140-420); RED BLOOD COUNT 4.05 X10e (3.90-5.30); RED CELL DISTRIBUTION WIDTH 13.8 % (11.0-15.5); WHITE BLOOD COUNT 12.3 X10e3 (4.0-10.5)
[2016-05-26 19:30] LABS: DIFF IND NO
[~2016-05-26 19:32] MED LIST: ADVIL200 M1 PO; ASPIRIN EC81 M1 PO; ASPIRIN81 M1 PO; ASPIRIN81 M2 PO; ATORVASTATIN CA80 MG PO; BRILINTA90 MG PO; CLOPIDOGREL75 MG PO; KEFLEX500 MG PO; LIPITOR80 MG PO; LOPRESSOR; LOSARTAN POTASS50 MG PO; METOPROLOL PO; METOPROLOL TART75 MG PO; NITROGLYGERIN0.4 MG SL; PREMPRO 0.3 MG/1 TAB PO; PREMPRO 0.3 MG1 EACH PO; TOPROL XL 50 MG50 MG PO; TOPROL XL PO; VICODIN PO; ZESTRIL10 M1 PO; ZESTRIL5 MG PO
[2016-05-26 19:51] LABS: PARTIAL THROMBOPLASTIN TIME <20.0 SECONDS (23.5-31.3)
[2016-05-26 20:02] LABS: ALBUMIN SERUM 4.4 g/dL (3.5-5.0); BILIRUBIN, DIRECT 0.3 mg/dL (0.0-0.2); BILIRUBIN,INDIRECT 0.5 mg/dL (0.0-0.9); BILIRUBIN,TOTAL 0.8 mg/dL (0.2-2.0); BUN/CREATININE RATIO 16.66; CALCIUM SERUM 9.5 mg/dL (8.4-10.2); CREATININE SERUM 1.2 mg/dL (0.6-1.4); GLOM FILT RATE Estimated 46.5 mL/min (>60); POTASSIUM 4.2 mmol/L (3.5-5.1); PROTEIN TOTAL SERUM 8.3 g/dL (6.0-8.3)
[2016-05-26 20:03] LABS: POC - CKMB <1.0 ng/mL (0.0-7.9); POC - TROPONIN <0.05 ng/mL (<=0.05)
[2016-05-27] MEDS ORDERED: PEPCID40 MG PO (01:39)
[2016-05-27] MEDS ORDERED: CARAFATE1 G PO (01:39)
[2016-05-27 06:54] LABS: BASOPHIL% 0.3 % (0-2.5); HEMATOCRIT 31.9 % (35.0-45.0); HEMOGLOBIN 10.9 gm/dL (12.0-16.0); LYMPHOCYTE# 2.3 X10e3 (1.0-3.5); MEAN CELL VOLUME 93.6 FL (83-96); MEAN CORPUSCULAR HEMOGLOBIN 31.8 PG (28-34); MEAN PLATELET VOLUME 9.1 FL (6.5-11.5); MONOCYTE# 0.7 X10e3 (0-1.0); MONOCYTE% 7.9 % (3.0-12.0); NEUTROPHIL# 6.4 X10e3 (1.5-7.1); NEUTROPHIL% 67.8 % (40-75); PLATELET COUNT 227 X10e3 (140-420); RED BLOOD COUNT 3.41 X10e (3.90-5.30); RED CELL DISTRIBUTION WIDTH 13.7 % (11.0-15.5); WHITE BLOOD COUNT 9.5 X10e3 (4.0-10.5)
[2016-05-27 06:58] LABS: DIFF IND NO
[2016-05-27 07:52] LABS: BUN/CREATININE RATIO 19.16; CREATININE SERUM 1.2 mg/dL (0.6-1.4); GLOM FILT RATE Estimated 46.5 mL/min (>60); POTASSIUM 4.1 mmol/L (3.5-5.1)
[2016-05-27 09:47] LABS: INR 1.1; PARTIAL THROMBOPLASTIN TIME 26.2 SECONDS (23.5-31.3); PROTHROMBIN TIME (PATIENT) 11.4 SECONDS (9.6-11.5)
[2016-05-27 09:57] LABS: THYROID STIMULATING HORMONE 0.71 uIU/ml (0.34-5.60)
[2016-05-27 10:04] LABS: FREE THYROXIN (T4) 1.09 ng/dL (0.58-1.64)
[2016-05-27 13:55] LABS: FOLATE (FOLIC ACID) 11.2 ng/mL (>5.8)
[2016-05-28 06:43] LABS: GLOM FILT RATE Estimated 57.4 mL/min (>60); POTASSIUM 3.8 mmol/L (3.5-5.1)
[2016-05-29 05:35] LABS: HEMATOCRIT 33.3 % (35.0-45.0); HEMOGLOBIN 11.1 gm/dL (12.0-16.0); MEAN CELL VOLUME 93.9 FL (83-96); MEAN CORPUSCULAR HEMOGLOBIN 31.3 PG (28-34); MEAN CORPUSCULAR HGB CONC 33.4 g/dL (30-36); MEAN PLATELET VOLUME 8.9 FL (6.5-11.5); RED BLOOD COUNT 3.55 X10e (3.90-5.30); WHITE BLOOD COUNT 7.6 X10e3 (4.0-10.5)
[2016-05-29 06:02] LABS: PARTIAL THROMBOPLASTIN TIME 31.5 SECONDS (23.5-31.3); PROTHROMBIN TIME (PATIENT) 10.8 SECONDS (9.6-11.5)
[2016-05-29 06:15] LABS: BUN/CREATININE RATIO 13.63; CALCIUM SERUM 9.2 mg/dL (8.4-10.2); CREATININE SERUM 1.1 mg/dL (0.6-1.4); GLOM FILT RATE Estimated 51.5 mL/min (>60); POTASSIUM 3.8 mmol/L (3.5-5.1)
[2016-05-29 17:54] LABS: ANGIO %MB 2.5 % (0.0-4.0); ANGIO MB 2.6 ng/ml
[2016-05-30 02:35] LABS: ANGIO %MB 1.9 % (0.0-4.0); ANGIO MB 1.7 ng/ml
[2016-05-30 06:18] LABS: HEMATOCRIT 28.1 % (35.0-45.0); HEMOGLOBIN 9.4 gm/dL (12.0-16.0); MEAN CELL VOLUME 94.6 FL (83-96); MEAN CORPUSCULAR HEMOGLOBIN 31.8 PG (28-34); MEAN CORPUSCULAR HGB CONC 33.7 g/dL (30-36); MEAN PLATELET VOLUME 9.1 FL (6.5-11.5); RED BLOOD COUNT 2.97 X10e (3.90-5.30); RED CELL DISTRIBUTION WIDTH 13.5 % (11.0-15.5); WHITE BLOOD COUNT 7.3 X10e3 (4.0-10.5)
[2016-05-30 06:58] LABS: BLOOD UREA NITROGEN 17 mg/dL (9-23); BUN/CREATININE RATIO 21.25; CALCIUM SERUM 8.5 mg/dL (8.4-10.2); CARBON DIOXIDE 27 mmol/L (22-31); CHLORIDE 108 mmol/L (100-111); CHOLESTEROL 106 mg/dL (0-200); CREATININE SERUM 0.8 mg/dL (0.6-1.4); GLOM FILT RATE Estimated ABOVE60 mL/min (>60); GLUCOSE FASTING 102 mg/dL (70-110); HDL CHOLESTEROL 47 mg/dL (35-95); LDL CHOLESTEROL 47 mg/dL (-130); LDL/HDL RATIO 1 RATIO (0-4); POTASSIUM 3.9 mmol/L (3.5-5.1); SODIUM 140 mmol/L (135-145); TRIGLYCERIDES 61 mg/dL (10-160)
[2016-05-30] MEDS ORDERED: ACETAMINOPHEN PO (13:26)
[2016-05-30] MEDS ORDERED: XARELTO20 MG (13:27)
[2016-05-30] MEDS ORDERED: PROTONIX PO (13:28)
[2016-05-30] MEDS ORDERED: CLOPIDOGREL75 MG PO (13:28)
[2016-05-30] MEDS ORDERED: CYMBALTA30 M1 (13:29)
[2016-05-30] MEDS ORDERED: CYANOCOBAL1000 MCG/M INJ (13:29)
== END 2016-05-30 19:30 | disposition home health service (06) | DRG 251 ==
LOC: CED 19:32 → CEDOF 21:35 → C5B 23:58
PROVIDERS: Emergency Medicine; Family Medicine; Internal Medicine; Internal Medicine Cardiovascular Disease; Nurse Practitioner; Psychiatry & Neurology Neurology
PROC: 4A023N7 Measurement of Cardiac Sampling and Pressure, Left Heart, Percutaneous Approach (ICD-10-PCS; principal; 2016-05-27)
PROC: B211YZZ Fluoroscopy of Multiple Coronary Arteries using Other Contrast (ICD-10-PCS; 2016-05-27)
PROC: B33RZZZ Magnetic Resonance Imaging (MRI) of Intracranial Arteries (ICD-10-PCS; 2016-05-28)
PROC: B338ZZZ Magnetic Resonance Imaging (MRI) of Bilateral Internal Carotid Arteries (ICD-10-PCS; 2016-05-28)
PROC: B33GZZZ Magnetic Resonance Imaging (MRI) of Bilateral Vertebral Arteries (ICD-10-PCS; 2016-05-28)
PROC: 02703ZZ Dilation of Coronary Artery, One Artery, Percutaneous Approach (ICD-10-PCS; 2016-05-29)
DX: I21.4 Non-ST elevation (NSTEMI) myocardial infarction (principal); N17.9 Acute kidney failure, unspecified; I11.0 Hypertensive heart disease with heart failure; F03.90 Unspecified dementia, unspecified severity, without behavioral disturbance, psychotic disturbance, mood disturbance, and anxiety; I08.3 Combined rheumatic disorders of mitral, aortic and tricuspid valves; I50.22 Chronic systolic (congestive) heart failure; I47.1 Supraventricular tachycardia; I25.10 Atherosclerotic heart disease of native coronary artery without angina pectoris; E78.5 Hyperlipidemia, unspecified; I48.91 Unspecified atrial fibrillation; Z79.82 Long term (current) use of aspirin; R53.1 Weakness; D72.829 Elevated white blood cell count, unspecified; F41.9 Anxiety disorder, unspecified; R73.9 Hyperglycemia, unspecified; Z91.19 Patient's noncompliance with other medical treatment and regimen; R62.7 Adult failure to thrive; R63.4 Abnormal weight loss; E53.8 Deficiency of other specified B group vitamins; F32.9 Major depressive disorder, single episode, unspecified; Z68.20 Body mass index [BMI] 20.0-20.9, adult
CPT/HCPCS: 36415; 70544; 70547; 70551; 71010; 73610; 73630; 80048; 80061; 80076; 82550; 82553; 82607; 82746; 83036; 83735; 84439; 84443; 84484; 85025; 85027; 85347; 85610; 85730; 93005; 94760; 96361; 96374; 96375; 96376; 97116; 97162; 97166; 99285; C1725; C1769; C1887; C1894; G8987-GO; G8988-GO; G8989-GO; G8990-GP; G8991-GP; J0153; J1327; J1644; J1650; J2250; J2370; J2405; J3010; J3420; J3490

== ENCOUNTER 2016-10-26 05:57 | Emergency (ER) | payer MEDICARE, BC ==
--- NOTE | ~2016-10-26 | CR151 ---
[facility] A Service [facility] RADIOLOGY TEXT RESULTS PATIENT: KENAN GOTTI LOCATION: [facility] : 40 UNIT #: [id number] AGE: [address]: Brian Becerril MD SEX: F ORDER DR: [id number] [facility] [address] [place], [place] [address] [id number] E MR#: [id number] Acc #: [id number] NAME: KENAN GOTTI : 1940 SEX: F STUDY DATE/TIME: 10/26/2016 8:54 UNIT: [facility] ROOM: STUDY DESCRIPTION: CR Hip Min 2 Views Rt Attending Physician: Brian Becerril M.D. Ordering Physician: Brian Becerril M.D. Primary Care Physician: Ric Holcomb M.D. MEDICAL IMAGING REPORT This report is preliminary unless electronic signature is present EXAM Hip 2 views minimal HISTORY Pain, swelling right hip, starting today after a fall. TECHNIQUE Frontal view of the pelvis and a frog-leg view of the right hip were reviewed. COMPARISON STUDIES No comparison. FINDINGS There is what is probably a small amount of dystrophic calcification at the superior aspect of the acetabulum laterally. Similar appearance on the left is less prominent. There is no definite acute fracture, dislocation or radiopaque foreign body. IMPRESSION 1. No definite acute fracture, dislocation or radiopaque foreign body. Small calcific density is seen at the superolateral acetabuli bilaterally, more apparent on the right than the left. Dictated by... Kathryn Doyle M.D. THIS IS AN ELECTRONICALLY VERIFIED REPORT Kathryn Doyle M.D. at 10/27/2016 3:51 PM SAC/pcl [facility] A Service [facility] RADIOLOGY TEXT RESULTS PATIENT: KENAN GOTTI LOCATION: [facility] : 40 UNIT #: [id number] AGE: [address]: Brian Becerril MD SEX: F ORDER DR: TD: 10/27/2016 12:49 JOB #: [id number] MEDICAL IMAGING REPORT Page 1 of 1 COPY
--- NOTE | ~2016-10-26 | CR72 ---
[facility] A Service of [facility] RADIOLOGY TEXT RESULTS PATIENT: KENAN GOTTI LOCATION: [facility] : 40 UNIT #: [id number] AGE: [address]: Brian Becerril MD SEX: F ORDER DR: [id number] [facility] [address] [place], [place] [address] [id number] E MR#: [id number] Acc #: [id number] NAME: KENAN GOTTI : 1940 SEX: F STUDY DATE/TIME: 10/26/2016 6:30 UNIT: [facility] ROOM: STUDY DESCRIPTION: CR Chest Single View Portable Attending Physician: Brian Becerril M.D. Ordering Physician: Brian Becerril M.D. Primary Care Physician: Ric Holcomb M.D. MEDICAL IMAGING REPORT This report is preliminary unless electronic signature is present EXAM Chest x-ray, single-view portable. CLINICAL HISTORY Syncope. Right face injury, weakness today. Fell this morning. COMMENT Single frontal portable view of the chest timed 6:30 a.m. on 10/26/2016 compared to a study from 06/11/2016. FINDINGS Cardiac silhouette size is normal. Evidence for old granulomatous disease noted. Nipple shadows seen bilaterally. No acute infiltrate. No acute congestive failure, pleural effusion or pneumothorax suspected. IMPRESSION 1. No active disease. Dictated by... Kathryn Doyle M.D. THIS IS AN ELECTRONICALLY VERIFIED REPORT Kathryn Doyle M.D. at 10/27/2016 9:24 AM CARMEN/whitney TD: 10/27/2016 00:30 JOB #: [id number] MEDICAL IMAGING REPORT Page 1 of 1 COPY
--- NOTE | ~2016-10-26 | EKG ---
PATIENT: KENAN GOTTI UNIT #: [id number] Ventricular Rate: 80 BPM Atrial Rate: 80 BPM P-R Interval: 136 ms QRS Duration: 84 ms Q-T Interval: 384 ms QTC Calculation(Bezet): 442 ms P [place]: 74 degrees Calculated R [place]: 57 degrees Calculated T [place]: 60 degrees Diagnosis Line: Normal sinus rhythm Diagnosis Line: Nonspecific ST abnormality Diagnosis Line: Abnormal ECG Diagnosis Line: When compared with ECG of 30-MAY-2016 05:33, Diagnosis Line: No significant change was found Diagnosis Line: Confirmed by PATRICIA TRAN MD ([id number]) on 10/27/2016 Diagnosis Line: 3:03:00 PM INTERPRETING MD: MARC SOLO
--- NOTE | ~2016-10-26 | CT52 ---
[facility] A Service of [facility] RADIOLOGY TEXT RESULTS PATIENT: KENAN GOTTI LOCATION: [facility] : 40 UNIT #: [id number] AGE: [address]: Brian Becerril MD SEX: F ORDER DR: [id number] [facility] [address] [place], [place] [address] [id number] E MR#: [id number] Acc #: [id number] NAME: KENAN GOTTI. : 1940 SEX: F STUDY DATE/TIME: 10/26/2016 8:17 UNIT: [facility] ROOM: STUDY DESCRIPTION: CT Cervical Spine Wo Cont Attending Physician: Brian Becerril M.D. Ordering Physician: Brian Becerril M.D. Primary Care Physician: Ric Holcomb M.D. MEDICAL IMAGING REPORT This report is preliminary unless electronic signature is present EXAM Cervical spine CT HISTORY Dizziness with a fall this morning. Neck pain. TECHNIQUE Thin section imaging was obtained from the skull base to the upper thoracic spine and evaluated at bone and soft tissue windows with multiplanar reformats. FINDINGS Multilevel cervical degenerative disk disease is seen. Degenerative changes are most prominent at C3-4, C5-6 and C6-7 with disk space narrowing in both anterior and posterior osteophyte formation. Central stenosis is moderate at these levels, and foraminal narrowing is moderately severe, particularly at C5-6 on the right. No fractures are noted. Posterior facets show generally mild arthropathy. No interlocked facets are seen. IMPRESSION Multilevel advanced degenerative disk disease, worst at C5-6 on the right. No fracture noted. Dictated by... Kirill Sol M.D. THIS IS AN ELECTRONICALLY VERIFIED REPORT Kirill Sol M.D. at 10/27/2016 10:32 AM [facility] A Service of [facility] RADIOLOGY TEXT RESULTS PATIENT: KENAN GOTTI LOCATION: [facility] : 40 UNIT #: [id number] AGE: [address]: Brian Becerril MD SEX: F ORDER DR: ZHENG/lynn TD: 10/27/2016 05:46 JOB #: [id number] MEDICAL IMAGING REPORT Page 1 of 1 COPY
--- NOTE | ~2016-10-26 | CT71 ---
[facility] A Service of [facility] RADIOLOGY TEXT RESULTS PATIENT: KENAN GOTTI LOCATION: [facility] : 40 UNIT #: [id number] AGE: [address]: Brian Becerril MD SEX: F ORDER DR: [id number] [place] [id number] [facility] [place], [place] [address] [id number] E MR#: [id number] Acc #: [id number] NAME: KENAN GOTTI : 1940 SEX: F STUDY DATE/TIME: 10/26/2016 8:13 UNIT: [facility] ROOM: STUDY DESCRIPTION: CT Head Wo Contrast Attending Physician: Brian Becerril M.D. Ordering Physician: Brian Becerril M.D. Primary Care Physician: Ric Holcomb M.D. MEDICAL IMAGING REPORT This report is preliminary unless electronic signature is present EXAM Head CT without contrast HISTORY Dizziness this morning with a fall. Head injury TECHNIQUE Axial images were obtained without contrast. This CT exam was performed with one or more of the following radiation dose reduction techniques: automatic exposure control, adjustment of mA and/or kV according to patient size, and iterative reconstruction. FINDINGS There is a small acute subdural hematoma seen over both frontal convexities and along the cribriform plate as well as along the left side of the anterior falx. It only measures a few millimeters in thickness. No midline shift. No appreciable mass effect. No intraaxial hemorrhages are seen. Also noted is a densely calcified meningioma over the left frontal convexity that was present on a previous brain MRI from 05/28/16. IMPRESSION Acute bifrontal subdural hematoma. The amount of blood is relatively small with no appreciable mass effect. The subdural appears to be 3 to 5 mm in thickness. It also involves the anterior aspect of the falx to the left of midline. Findings called to Dr. Becerril at the time of this dictation. Dictated by... [facility] A Service [facility] RADIOLOGY TEXT RESULTS PATIENT: KENAN GOTTI LOCATION: [facility] : 40 UNIT #: [id number] AGE: [address]: Brian Becerril MD SEX: F ORDER DR: Kirill Sol M.D. THIS IS AN ELECTRONICALLY VERIFIED REPORT Kirill Sol M.D. at 10/27/2016 10:32 AM ZHENG/lynn TD: 10/27/2016 05:38 JOB #: [id number] MEDICAL IMAGING REPORT Page 1 of 1 COPY
[~2016-10-26 05:57] MED LIST changes: +ACETAMINOPHEN PO; +CARAFATE1 G PO; +CYANOCOBAL1000 MCG/M INJ; +CYMBALTA30 M1; +PEPCID40 MG PO; +PROTONIX PO; +XARELTO20 MG
[2016-10-26 06:31] LABS: BASOPHIL% 0.3 % (0-2.5); EOSINOPHIL% 0.2 % (0.0-7.0); HEMATOCRIT 33.9 % (35.0-45.0); HEMOGLOBIN 11.2 gm/dL (12.0-16.0); LYMPHOCYTE% 10.6 % (17.0-45.0); MEAN CELL VOLUME 93.8 FL (83-96); MEAN PLATELET VOLUME 8.5 FL (6.5-11.5); MONOCYTE% 11.2 % (3.0-12.0); NEUTROPHIL% 77.7 % (40-75); PLATELET COUNT 267 X10e3 (140-420); RED BLOOD COUNT 3.61 X10e (3.90-5.30)
[2016-10-26 06:45] LABS: URINE SOURCE CLEAN CATCH
[2016-10-26 06:49] LABS: URINE APPEARANCE CLEAR; URINE BILIRUBIN NEG (NEG); URINE BLOOD NEG (NEG); URINE COLOR YELLOW; URINE GLUCOSE NEG (NEG); URINE KETONE TRACE (NEG); URINE LEUKOCYTE ESTERASE 2+ (NEG); URINE NITRATE NEG (NEG); URINE PROTEIN TRACE (NEG)
[2016-10-26 06:52] LABS: CULTURE INDICATED? YES; URINE BACTERIA AUWI NEG (NEGATIVE); URINE SQUAMOUS EPITHELIAL CELL FEW /[HPF]
[2016-10-26 07:01] LABS: DIFF IND NO
[2016-10-26 07:07] LABS: ALBUMIN SERUM 3.9 g/dL (3.5-5.0); BILIRUBIN, DIRECT 0.1 mg/dL (0.0-0.2); BILIRUBIN,INDIRECT 0.7 mg/dL (0.0-0.9); BILIRUBIN,TOTAL 0.8 mg/dL (0.2-2.0); BUN/CREATININE RATIO 17.77; CALCIUM SERUM 9.1 mg/dL (8.4-10.2); CREATININE SERUM 0.9 mg/dL (0.6-1.4); GLOM FILT RATE Estimated 62.2 mL/min (>60); POTASSIUM 3.5 mmol/L (3.5-5.1); PROTEIN TOTAL SERUM 8.1 g/dL (6.0-8.3)
[2016-10-26 08:21] LABS: INR 1.5; PARTIAL THROMBOPLASTIN TIME 37.5 SECONDS (23.5-31.3)
[2016-10-26 08:24] LABS: PROTHROMBIN TIME (PATIENT) 16.8 SECONDS (10.0-11.7)
== END 2016-10-26 10:37 | disposition short-term general hospital (02) ==
LOC: CED 05:57
PROVIDERS: Emergency Medicine
DX: S06.5X9A Traumatic subdural hemorrhage with loss of consciousness of unspecified duration, initial encounter (principal); S05.11XA Contusion of eyeball and orbital tissues, right eye, initial encounter; I48.91 Unspecified atrial fibrillation; I10 Essential (primary) hypertension; X58.XXXA Exposure to other specified factors, initial encounter; Y92.098 Other place in other non-institutional residence as the place of occurrence of the external cause
CPT/HCPCS: 36415; 70450; 71010; 72125; 73502; 80048; 80076; 81003; 85025; 85610; 85730; 87086; 93005; 99291; J2405